=== PATIENT | male | born 1960 | race Caucasian/White ===

== ENCOUNTER 2018-04-13 17:21 | Emergency (ER) | payer OTHER ==
[2018-04-13] MEDS ORDERED: Lidocaine 1%* 5 ML VIAL INJ ONE (19:03)
[2018-04-13] MEDS ORDERED: Tetan/Diph/Pertus SYR(Tdap)* 0.5 ML SYR(BOOSTRIX) use SYR IM ONE (20:07)
--- NOTE | 2018-04-13 20:08 | ED ---
Laceration/Wound HPI - HPI Summary HPI Summary: 57-year-old male presents with left thumb laceration today. He cut it on a knife. The area continues to bleed. No other injury. Has no medical conditions besides high blood pressure. Is not on blood thinner. He doesn't know when last tetanus is. full ROM. no numbness or tingling. - History of Current Complaint Stated Complaint: LT THUMB LAC Time Seen by Provider: 04/13/18 18:50 Pain Intensity: 3 - Allergy/Home Medications Allergies/Adverse Reactions: Allergies Allergy/AdvReac Type Severity Reaction Status Date / Time No Known Allergies Allergy Verified 04/13/18 17:37 PMH/Surg Hx/FS Hx/Imm Hx Endocrine/Hematology History: Denies: Hx Anticoagulant Therapy Cardiovascular History: Reports: Hx Hypertension Infectious Disease History: No Infectious Disease History: Reports: Traveled Outside the [place] in Last 30 Days - Family History Known Family History: Positive: Non-Contributory - Social History Alcohol Use: None Substance Use Type: Reports: None Smoking Status (MU): Never Smoked Tobacco Review of Systems Negative: Fever Negative: Chest Pain Negative: Shortness Of Breath Positive: Other - left thumb laceration All Other Systems Reviewed And Are Negative: Yes Physical Exam Triage Information Reviewed: Yes Vital Signs On Initial Exam: Initial Vitals Temp Pulse Resp BP Pulse Ox 99.1 F 71 20 175/94 99 04/13/18 17:33 04/13/18 17:33 04/13/18 17:33 04/13/18 17:33 04/13/18 17:33 Vital Signs Reviewed: Yes Appearance: Positive: Well-Appearing Skin: Positive: Other - 3cm superficial flap like laceration at distal phalanx of left thumb near edge of left thumb Head/Face: Positive: Normal Head/Face Inspection Eyes: Positive: Normal, Conjunctiva Clear ENT: Positive: Pharynx normal Respiratory/Lung Sounds: Positive: Clear to Auscultation, Breath Sounds Present Cardiovascular: Positive: Normal, RRR Musculoskeletal: Positive: Strength/ROM Intact - left thumb, Other - capillary refill<2secs Neurological: Positive: Normal Psychiatric: Positive: Normal Procedures - Laceration/Wound Repair 1 Location: Other - left thumb Description: Irregular Length, Depth and Shape: 3cm superficial Irrigated w/ Saline (ccs): 100 Laceration/Wound Explored: no foreign body removed Closure: Single Layer Suture Type: Prolene Number of Sutures: 5 Layer Closure?: No Sterile Dressing Applied?: No - xeroform, coband, gauze Diagnostics - Vital Signs Vital Signs Temp Pulse Resp BP Pulse Ox 04/13/18 17:33 99.1 F 71 20 175/94 99 - Laboratory Lab Statement: Any lab studies that have been ordered have been reviewed, and results considered in the medical decision making process. Laceration Repair Course/Dx - Course Course Of Treatment: 57-year-old male presents with left thumb laceration today. He cut it on a knife. The area continues to bleed. No other injury. Has no medical conditions besides high blood pressure. Is not on blood thinner. He doesn't know when last tetanus is. On exam has 3cm superficial laceration near the end of the distal phalanx of the left thumb. Area is not actively bleeding. Performed digital block. Closed area with 5 sutures placed pressure dressing on the area. Told to change pressure dressing tomorrow. Told have sutures removed in 7-10 days. Patient understands agrees with plan. - Differential Dx Differental Diagnoses: Abrasion, Avulsion, Laceration - Clinical Impression Provider Diagnoses: Thumb laceration Discharge - Sign-Out/Discharge Documenting (check all that apply): Patient Departure - Discharge Plan Condition: Good Disposition: HOME Patient Education Materials: Care For Your Stitches (ED) Referrals: Abe Jo MD [Primary Care Provider] - Additional Instructions: Take Tylenol or ibuprofen for pain every 6 hours as needed Keep area clean and dry for 24 hours Return to ED or primary in 7-10 days to have sutures removed Return to ED if develop signs of infection such as fever, spreading redness, or pus. - Billing Disposition and Condition Condition: GOOD Disposition: Home
[2018-04-13 21:06] VITALS: BP 136/88
== END 2018-04-13 21:05 | disposition home or self-care (01) ==
LOC: ED 17:21
DX: S61.012A Laceration without foreign body of left thumb without damage to nail, initial encounter (principal); W26.0XXA Contact with knife, initial encounter; Y92.9 Unspecified place or not applicable; Z23 Encounter for immunization
CPT/HCPCS: 12002; 90471; 90715; 99282

== ENCOUNTER 2018-04-23 14:02 | Emergency (ER) | payer OTHER ==
--- NOTE | 2018-04-23 14:21 | ED ---
ED Suture/Wound Check - HPI Summary HPI Summary: This patient is a 57 year old M presenting to [facility] with a chief complaint of suture removal from left thumb. The patient is here to remove 6 stitches from his thumb. He is not taking antibiotics and he has received his tetanus shot. - History Of Current Complaint Chief Complaint: EDLacSutureRecheck Stated Complaint: STICHES REMOVAL Time Seen by Provider: 04/23/18 14:16 Hx Obtained From: Patient Pain Intensity: 0 Procedure Type: suture removal, 6 from the left thumb - Allergies/Home Medications Allergies/Adverse Reactions: Allergies Allergy/AdvReac Type Severity Reaction Status Date / Time No Known Allergies Allergy Verified 04/23/18 14:06 PMH/Surg Hx/FS Hx/Imm Hx Endocrine/Hematology History: Denies: Hx Anticoagulant Therapy Cardiovascular History: Reports: Hx Hypertension Infectious Disease History: No Infectious Disease History: Denies: Traveled Outside the [place] in Last 30 Days - Family History Known Family History: Positive: Non-Contributory - Social History Alcohol Use: None Substance Use Type: Reports: None Smoking Status (MU): Never Smoked Tobacco Review of Systems Negative: Fever Positive: Other - laceration on left thumb All Other Systems Reviewed And Are Negative: Yes Physical Exam - Summary Physical Exam Summary: HAND: laceration on the left thumb with six sutures. Triage Information Reviewed: Yes Vital Signs On Initial Exam: Initial Vitals Temp Pulse Resp BP Pulse Ox 96.0 F 64 14 149/86 100 04/23/18 14:04 04/23/18 14:04 04/23/18 14:04 04/23/18 14:04 04/23/18 14:04 Vital Signs Reviewed: Yes Diagnostics - Vital Signs Vital Signs Temp Pulse Resp BP Pulse Ox 04/23/18 14:04 96.0 F 64 14 149/86 100 - Laboratory Lab Statement: Any lab studies that have been ordered have been reviewed, and results considered in the medical decision making process. Course/Dx - Course Assessment/Plan: This patient is a 57 year old M presenting to [facility] with a chief complaint of suture removal from left thumb. The patient is here to remove 6 stitches from his thumb. He is not taking antibiotics and he has received his tetanus shot. There were no couple occasions. Patient will follow -up with PCP as needed. - Clinical Impression Provider Diagnoses: Visit for suture removal Discharge - Sign-Out/Discharge Documenting (check all that apply): Patient Departure - discharge - Discharge Plan Condition: Stable Disposition: HOME Patient Education Materials: Stitches Removal (ED) Referrals: Abe Jo MD [Primary Care Provider] - - Billing Disposition and Condition Condition: STABLE Disposition: Home - Attestation Statements Document Initiated by Scribe: Yes Documenting Scribe: Ash Ramirez Provider For Whom Scribe is Documenting (Include Credential): Kosta Dean Scribemmie Attestation: IAsh, nicoletteed for Kosta Dean on 04/23/18 at 1434. Scribe Documentation Reviewed: Yes Provider Attestation: The documentation as recorded by the Ash perry accurately reflects the service I personally performed and the decisions made by Kosta asif Status of Scribe Document: Viewed
[2018-04-23 14:33] VITALS: BP 131/78
== END 2018-04-23 14:32 | disposition home or self-care (01) ==
LOC: ED 14:02
DX: S61.012D Laceration without foreign body of left thumb without damage to nail, subsequent encounter (principal); W45.8XXD Other foreign body or object entering through skin, subsequent encounter